=== PATIENT | male | born 1985 | race African-American/Black ===

== ENCOUNTER 2020-12-23 10:29 | Emergency (ER) | payer OTHER ==
[2020-12-23 10:59] LABS: Absolute Lymphocytes (CBC) 2.2 K/uL (0.7-4.9); Basophils % 1.2 % (0-1.3); Hematocrit 38.4 % (39.6-49.0); Lymphocytes % 42.8 % (15.3-44.8); MPV 8.1 fL (7.6-11.3); RBC Red Blood Cell Count 4.23 M/uL (4.33-5.43)
[2020-12-23 11:06] LABS: Protime INR 1.09
[2020-12-23] MEDS ORDERED: LIDOCAINE VISCOUS 2% SOLN 15 ML UDC ONE (11:11)
[2020-12-23] MEDS ORDERED: MAGNES/ALUMIN/SIMET 30ML UCUP ONE (11:11)
[2020-12-23 11:14] LABS: ALT/SGPT 65 U/L (12-78); AST/SGOT 24 U/L (15-37); Albumin 4.4 g/dL (3.4-5.0); Alkaline Phosphatase 49 U/L (45-117); BUN Blood Urea Nitrogen 12 mg/dL (7-18); Bicarbonate 24 mmol/L (21-32); Bilirubin Direct 0.1 mg/dL (0-0.2); Bilirubin Total 0.4 mg/dL (0.2-1.0); Glucose Level 138 mg/dL (74-106); Lipase 119 U/L (73-393); NT PRO-BNP 21 pg/mL (<125); Potassium 3.6 mmol/L (3.5-5.1); Protein, Total 8.3 g/dL (6.4-8.2); Sodium Level 139 mmol/L (136-145); Troponin (Emerg Dept Use Only) < 0.02 ng/mL (0.0-0.045)
--- NOTE | 2020-12-23 11:21 | RAD REPORT ---
EXAM DESCRIPTION: RAD - Chest Single View - 12/23/2020 11:14 am CLINICAL HISTORY: CHEST PAIN COMPARISON: CHEST SINGLE VIEW dated 06/15/2013; CHEST PA AND LAT 2 VIEW dated 09/07/2011 FINDINGS: Lines: None. Lungs: No evidence of edema or pneumonia. Pleural: No significant pleural effusions or pneumothorax. Cardiac: The heart size is within normal limits. Bones: No acute fractures. Other: IMPRESSION: No acute cardiopulmonary disease.
--- NOTE | 2020-12-23 11:23 | RAD REPORT ---
EXAM DESCRIPTION: US - Abdomen Exam Limited - 12/23/2020 11:18 am CLINICAL HISTORY: chest pain COMPARISON: No comparisons FINDINGS: The gallbladder demonstrates no gallstones. No pericholecystic fluid or gallbladder wall t hickening. The common bile duct is normal measuring 4 mm. The liver demonstrates no findings of intrahepatic biliary dilatation. IMPRESSION: Unremarkable examination.
--- NOTE | 2020-12-23 11:54 | ER ---
Nurse's Notes [facility] Name: Bam Becerril Age: 35 yrs Sex: Male : 1985 Arrival Date: 12/23/2020 Time: 10:31 Bed 19 Private MD: Diagnosis: Chest pain, unspecified;Gastro-esophageal reflux disease with esophagitis Presentation: 12/23 10:31 Chief complaint: Patient states: he has had chest pain for about a year. pain is ap3 primarily midsternal, and at times will radiate to the back. patient states he has seen his dr for this before and has been told its congestion and reflux. Coronavirus screen: At this time, the client does not indicate any symptoms associated with coronavirus-19. Ebola Screen: No symptoms or risks identified at this time. Initial Sepsis Screen: Does the patient meet any 2 criteria? No. Patient's initial sepsis screen is negative. Does the patient have a suspected source of infection? No. Patient's initial sepsis screen is negative. Risk Assessment: Do you want to hurt yourself or someone else? Patient reports no desire to harm self or others. Onset of symptoms was 2019. 10:31 Method Of Arrival: EMS: [facility] ap3 10:31 Acuity: TON 3 ap3 Triage Assessment: 10:34 General: Appears uncomfortable, Behavior is cooperative. Pain: Complains of pain in ap3 mid-sternal area Pain radiates to back Pain currently is 8 out of 10 on a pain scale. Quality of pain is described as tight Pain began a year ago. Neuro: Level of Consciousness is awake, alert, obeys commands, Oriented to person, place, time, situation, Appropriate for age Moves all extremities. Gait is steady, Speech is normal. Cardiovascular: Reports chest pain, Denies shortness of breath, Capillary refill < 3 seconds Patient's skin is warm and dry. Chest pain is described as Pain is 8 out of 10 on a pain scale. quality is tightness radiates to back at times began a year ago. Respiratory: Airway is patent Respiratory effort is even, unlabored, Respiratory pattern is regular, symmetrical. GI: Reports nausea. Historical: - Allergies: 10:36 Morphine; ap3 - Home Meds: 10:36 unknown white pill [Active]; ap3 - PMHx: 10:36 Asthma; Gastroesophageal reflux disease; ap3 - Immunization history:: Adult Immunizations up to date, Client reports receiving the 2nd dose of the Covid vaccine. - Social history:: Smoking status: Patient reports use of chewing tobacco. - Family history:: not pertinent. - Hospitalizations: : No recent hospitalization is reported. Screenin:34 Abuse screen: Denies threats or abuse. Nutritional screening: No deficits noted. ap3 Tuberculosis screening: No symptoms or risk factors identified. Fall Risk None identified. Vital Signs: 10:31 BP 148 / 75; Resp 18; Pulse Ox 97% on R/A; Weight 99.79 kg; Height 5 ft. 7 in. (170.18 ap3 cm); Pain 8/10; 10:38 BP 133 / 76; Pulse 63; ap3 11:15 Temp 98.9(O); ap3 11:29 BP 145 / 68; Pulse 68; Pulse Ox 100% on R/A; ap3 10:31 Body Mass Index 34.46 (99.79 kg, 170.18 cm) ap3 ED Course: 10:31 Patient arrived in ED. ap3 10:33 Dimitris Washington MD is Attending Physician. rn 10:34 Triage completed. ap3 10:36 Arm band placed on right wrist. EKG done per protocol. Performed by ED Staff. Shown to ap3 ED physician. 10:38 Patient has correct armband on for positive identification. Placed in gown. Bed in low ap3 position. Call light in reach. Side rails up X2. threat monitoring analyst on. Pulse ox on. NIBP on. Door closed. Noise minimized. 10:42 D-Dimer Sent. aj2 10:42 PT-INR Sent. aj2 10:42 Troponin (emerg Dept Use Only) Sent. aj2 10:43 Yolanda Hale, RN is Primary Nurse. ap3 11:10 Pt visited by . ap3 11:13 XRAY Chest (1 view) In Process Unspecified. EDMS 11:18 US Abdomen Limited In Process Unspecified. EDMS 11:53 Arun Kim MD is Referral Physician. rn 12:02 No provider procedures requiring assistance completed. IV discontinued, intact, ap3 bleeding controlled, No redness/swelling at site. Pressure dressing applied. Administered Medications: 10:47 Drug: GI Cocktail without - (Maalox Suspension 30 ml, Lidocaine Liquid 2 % 15 ap3 ml) Route: PO; 12:02 Follow up: Response: No adverse reaction ap3 11:58 Drug: ProTONIX (pantoprazole) 40 mg Route: IVP; Site: right forearm; ap3 12:02 Follow up: Response: No adverse reaction ap3 Outcome: 11:54 Discharge ordered by . rn 12:02 Discharged to home ambulatory. ap3 12:02 Condition: good 12:02 Discharge instructions given to patient, Instructed on discharge instructions, follow up and referral plans. Demonstrated understanding of instructions, follow-up care, medications, Prescriptions given X 1. 12:06 Patient left the ED. ap3 Signatures: Dispatcher [employer] EDMS Dimitris Washington MD MD rn Prokisch, Amanda, RN RN ap3 Babita Llanes2
--- NOTE | 2020-12-23 11:55 | EDPHYS ---
Physician Documentation [facility] Name: Bam Becerril Age: 35 yrs Sex: Male : 1985 Arrival Date: 12/23/2020 Time: 10:31 Bed 19 Private MD: ED Physician Dimitris Washington HPI: 12/23 11:48 This 35 yrs old Black Male presents to ER via EMS with complaints of Chest pain. rn 11:48 The patient or guardian reports chest pain that is located primarily in the substernal rn area. The pain radiates to Associated signs and symptoms: Pertinent negatives: abdominal pain, cough, diaphoresis, palpitations, shortness of breath, syncope, vomiting. The chest pain is described as a heaviness, squeezing. Duration: The patient or guardian reports multiple episodes, that are intermittent. Modifying factors: The symptoms are alleviated by nothing. the symptoms are aggravated by nothing. Severity of pain: At its worst the pain was moderate in the emergency department the pain has improved. The patient has experienced similar episodes in the past. The patient has not recently seen a physician. Patient reports intermittent chest pain for 1 year. Radiates to the back. Has a terrible diet. Today was eating oncologic and went to work shortly after felt substernal chest pain that radiates to the back. Seen by PCP and told was acid reflux but does not take any medication and has not modified diet. No family history of cardiac problems at her age. Denies trauma. Denies feeling ill or cough.. Historical: - Allergies: 10:36 Morphine; ap3 - Home Meds: 10:36 unknown white pill [Active]; ap3 - PMHx: 10:36 Asthma; Gastroesophageal reflux disease; ap3 - Immunization history:: Adult Immunizations up to date, Client reports receiving the 2nd dose of the Covid vaccine. - Social history:: Smoking status: Patient reports use of chewing tobacco. - Family history:: not pertinent. - Hospitalizations: : No recent hospitalization is reported. ROS: 11:48 Constitutional: Negative for fever, chills, and weight loss, Eyes: Negative for injury, rn pain, redness, and discharge, ENT: Negative for injury, pain, and discharge, Neck: Negative for injury, pain, and swelling, Cardiovascular: Positive for chest pain Respiratory: Negative for shortness of breath, cough, wheezing, and pleuritic chest pain, Abdomen/GI: Negative for abdominal pain, nausea, vomiting, diarrhea, and constipation, Back: Negative for injury and pain, : Negative for injury, bleeding, discharge, and swelling, MS/Extremity: Negative for injury and deformity, Skin: Negative for injury, rash, and discoloration, Neuro: Negative for headache, weakness, numbness, tingling, and seizure. Exam: 11:48 Constitutional: This is a well developed, well nourished patient who is awake, alert, rn and in no acute distress. Head/Face: Normocephalic, atraumatic. Eyes: Periorbital areas with no swelling, redness, or edema. Cardiovascular: Regular rate and rhythm. No pulse deficits. Respiratory: No increased work of breathing, no retractions or nasal flaring. Abdomen/GI: Soft, non-tender Skin: Warm, dry MS/ Extremity: Pulses equal, no cyanosis. Neuro: Awake and alert, GCS 15 11:48 ECG was reviewed by the Attending Physician. rn Vital Signs: 10:31 BP 148 / 75; Resp 18; Pulse Ox 97% on R/A; Weight 99.79 kg; Height 5 ft. 7 in. (170.18 ap3 cm); Pain 8/10; 10:38 BP 133 / 76; Pulse 63; ap3 11:15 Temp 98.9(O); ap3 11:29 BP 145 / 68; Pulse 68; Pulse Ox 100% on R/A; ap3 10:31 Body Mass Index 34.46 (99.79 kg, 170.18 cm) ap3 MDM: 10:33 Patient medically screened. rn 11:48 Differential diagnosis: acute myocardial infarction, acute pericarditis, anxiety, rn coronary artery disease chest wall pain, cholecystitis, Cholelithiasis costochondritis, esophagitis, gastritis, gastroesophageal reflux disease (GERD), pancreatitis, pleurisy, pneumothorax. HEART Score: History: Slightly Suspicious (0), ECG: Non specific repolarization disturbance / LBTB / PM (1), Age: < or = 45 years (0), Risk Factors: No Risk Factors Known (0), Troponin: < or = 1 x Normal Limit (0), Total Score = 1. Data reviewed: vital signs, nurses notes, lab test result(s), EKG, radiologic studies, plain films, and as a result, I will discharge patient. Data interpreted: groundwater monitoring technician: rate is 68 beats/min, rhythm is normal sinus rhythm, regular, with no ectopy, Interpretation: normal rate, normal rhythm, Pulse oximetry: on room air is 100 %. Interpretation: normal. Counseling: I had a detailed discussion with the patient and/or guardian regarding: the historical points, exam findings, and any diagnostic results supporting the discharge/admit diagnosis, lab results, radiology results, the need for outpatient follow up, to return to the emergency department if symptoms worsen or persist or if there are any questions or concerns that arise at home. Response to treatment: the patient's symptoms have markedly improved after treatment, and as a result, I will discharge patient. Special discussion: Based on the patient's history, exam, and Dx evaluation, there is no indication for emergent intervention or inpatient Tx. It is understood by the patient/guardian that if the Sx's persist or worsen they need to return immediately for re-evaluation. I discussed with the patient/guardian in detail that at this point there is no indication for admission to the hospital. It is understood, however, that if the symptoms persist or worsen the patient needs to return immediately for re-evaluation. ED course: Chest pain markedly improved after GI cocktail, after approximately 20 minutes of taking it. Will DC home with antacids and return precautions given troponin negative, ECG unremarkable without ischemia and symptoms for 1 year. Also counseled patient regarding diet changes. 12/23 10:40 Order name: Basic Metabolic Panel; Complete Time: 11: rn 12/23 10:40 Order name: CBC with Diff; Complete Time: : rn 12/23 10:40 Order name: LFT's; Complete Time: 11: rn 12/23 10:40 Order name: NT PRO-BNP; Complete Time: 11: rn 12/23 10:40 Order name: PT-INR; Complete Time: 11: rn 12/23 10:40 Order name: Troponin (emerg Dept Use Only); Complete Time: 11: rn 12/23 10:40 Order name: XRAY Chest (1 view); Complete Time: 11: rn 12/23 10:40 Order name: EKG; Complete Time: 10:41 rn 12/23 10:40 Order name: Cardiac monitoring; Complete Time: 10:43 rn 12/23 10:40 Order name: D-Dimer; Complete Time: 11:24 rn 12/23 10:40 Order name: Lipase; Complete Time: 11:24 rn 12/23 10:40 Order name: US Abdomen Limited; Complete Time: 11:24 rn 12/23 10:40 Order name: EKG - Nurse/Tech; Complete Time: 10:43 rn 12/23 10:40 Order name: IV Saline Lock; Complete Time: 10:42 rn 12/23 10:40 Order name: Labs collected and sent; Complete Time: :42 rn 12/23 10:40 Order name: O2 Per Protocol; Complete Time: :43 rn 12/23 10:40 Order name: O2 Sat Monitoring; Complete Time: :43 rn EC:48 Rate is 58 beats/min. Rhythm is regular. QRS [place] is Normal. GA interval is normal. QRS rn interval is normal. QT interval is normal. No Q waves. T waves are Inverted in lead III. No ST changes noted. Clinical impression: NSR w/ Non-specific ST/T Changes. Interpreted by me. Reviewed by me. Administered Medications: 10:47 Drug: GI Cocktail without - (Maalox Suspension 30 ml, Lidocaine Liquid 2 % 15 ap3 ml) Route: PO; 12:02 Follow up: Response: No adverse reaction ap3 11:58 Drug: ProTONIX (pantoprazole) 40 mg Route: IVP; Site: right forearm; ap3 12:02 Follow up: Response: No adverse reaction ap3 Disposition Summary: 12/23/20 11:54 Discharge Ordered Location: Home rn Problem: an ongoing problem rn Symptoms: have improved rn Condition: Stable rn Diagnosis - Chest pain, unspecified rn - Gastro-esophageal reflux disease with esophagitis rn Followup: rn - With: Arun Kim MD - When: As needed - Reason: Recheck today's complaints, Re-evaluation by your physician Discharge Instructions: - Discharge Summary Sheet rn - Nonspecific Chest Pain, Adult rn - Food Choices for Gastroesophageal Reflux Disease, Adult rn - Gastroesophageal Reflux Disease, Adult rn Forms: - Medication Reconciliation Form rn - Thank You Letter rn - Antibiotic international representative - Prescription Opioid Use rn - Work release form ap3 Prescriptions: - Protonix 40 mg Oral Tablet - take 1 tablet by ORAL route once daily; 30 tablet; Refills: 0, Product rn Selection Permitted Signatures: Dispatcher [employer] EDDimitris Gipson MD MD rn Prokisch, Amanda, RN RN ap3 Corrections: (The following items were deleted from the chart) 11:53 11:48 ED course: Chest pain markedly improved after GI cocktail, after approximately 20 rn minutes of taking it. Will DC home with antacids and return precautions given troponin negative, ECG unremarkable without ischemia and symptoms for 1 year.. rn
[2020-12-23 12:13] VITALS: TEMP 98.9
[2020-12-23 12:14] VITALS: BP 145/68; O2SAT 100
[2020-12-23] MEDS ORDERED: PANTOPRAZOLE 40 MG INJ ONE (12:16)
--- NOTE | 2020-12-24 16:47 | EKG ---
Test Date: 2020-12-23 Test Time: 10:35:29 Tree Shear Operator: TTR MEASUREMENT RESULTS: Intervals: Rate: 58 IN: 138 QRSD: 98 QT: 364 QTc: 357 Thayer: P: 65 IN: 138 QRS: 38 T: 3 INTERPRETIVE STATEMENTS: Sinus bradycardia Nonspecific T wave abnormality Abnormal ECG Compared to ECG 06/15/2013 06:26:51 No significant changes Electronically Signed On 12-24-20 16:43:08 CDT by Arun Kim
== END 2020-12-23 12:06 | disposition home or self-care (01) ==
LOC: ER 10:29
DX: K21.00 Gastro-esophageal reflux disease with esophagitis, without bleeding (principal); F17.220 Nicotine dependence, chewing tobacco, uncomplicated; Z88.5 Allergy status to narcotic agent
CPT/HCPCS: 93005; 85025; 80048; 36415; 85610; 85379; 80076; 84484; 83690; 83880; 71045; 76705; 96374; 99284; C9113

== ENCOUNTER 2021-01-19 13:01 | Inpatient (IN) | payer OTHER ==
[2021-01-19] MEDS ORDERED: Ringers Lactate 1,000 ML IV ONE (14:11)
[2021-01-19] MEDS ORDERED: NA CIT/CITRIC AC 30 ML ORAL UDC ONE (14:37)
[2021-01-19] MEDS ORDERED: dexAMETHasone 10 MG/ML VIAL ONE (14:50)
[2021-01-19] MEDS ORDERED: FENTANYL CITR 100 MCG/2 ML ONE ×2 (14:50→16:13)
[2021-01-19] MEDS ORDERED: MIDAZOLAM HCL 2 MG/2 ML INJ ONE (14:50)
[2021-01-19] MEDS ORDERED: propofoL 200 MG/20 ML VIAL IV ONE (14:50)
[2021-01-19] MEDS ORDERED: KETOROLAC 30 MG/ML INJ ONE (14:50)
[2021-01-19] MEDS ORDERED: LIDOCAINE 2% MPF 5 ML VIAL ONE (14:50)
[2021-01-19] MEDS ORDERED: ONDANSETRON 4 MG/2 ML VIAL ONE (14:50)
[2021-01-19] MEDS ORDERED: ROCURONIUM 50 MG/5 ML VIAL IV ONE (14:50)
[2021-01-19] MEDS ORDERED: CEFOXITIN/NS 1gm 1 GM/50 ML BAG ONE (14:51)
--- NOTE | 2021-01-19 15:42 | P.OP ---
Edger Hand: Jose BELL Preoperative diagnosis: Acute Appendicitis Postoperative diagnosis: Acute Suppurative Appendicitis with adhesions Primary procedure: Lap Appy, ROSALIE Anesthesia: General Estimated blood loss: min Specimen: Appy Findings: as above Complications: None Drain(s): BENY drain Transferred to: Recovery Room Condition: Good
[2021-01-19] MEDS ORDERED: GLYCOPYRROLATE 0.2 MG/ML SYR ONE ×2 (15:45→16:14)
[2021-01-19] MEDS ORDERED: HYDROMORPHONE HCL 1 MG/ML INJ IV PRN (15:48)
[2021-01-19] MEDS ORDERED: ONDANSETRON 4 MG/2 ML VIAL IV PRN (15:48)
[2021-01-19] MEDS ORDERED: VECURONIUM 10 MG/VIAL IV ONE (15:52)
[2021-01-19] MEDS ORDERED: NS 0.9% VIAL 10 ML ONE (15:52)
[2021-01-19] MEDS ORDERED: NEOSTIGMINE 1 MG/ML -5 ML ONE (16:14)
[2021-01-19] MEDS: METRONIDAZOLE 500mg IVPB 500 MG/100 ML BAG IV SCH (17:00)
[2021-01-19] MEDS ORDERED: SUCCINYLCHOLINE 20 MG/ML (10 ML) IV ONE (17:21)
[2021-01-19 17:24] VITALS: BMI 35.5
[2021-01-19] MEDS ORDERED: CEFOXITIN SODIUM 1 GM/VIAL IVPB SCH (18:00)
[2021-01-19] MEDS ORDERED: INFLUENZA VACCINE (for 6+ mo) 0.5 ML DOSE IMVAC ONE (18:00)
[2021-01-19] MEDS ORDERED: PNEUMOCOCCAL VACCINE 0.5 ML IMVAC ONE (18:00)
[2021-01-19] MEDS: CEFOXITIN 1 GM in NA CHLORIDE 0.9% 50 ML IVPB SCH (18:21)
--- NOTE | 2021-01-19 18:40 | PREOPHP ---
Date of Admission: 01/19/2021 Chief Complaint: Abdominal pain. History Of Present Illness: The patient is a 35-year-old gentleman, who has had intermittent right-s ided abdominal pain since Tuesday, he was better Tuesday and then yesterday he became little worse an d today he became more symptomatic and he came to help this. He had a workup done, which revealed ac ashutosh appendicitis. I was contacted by the patient to be transferred to our facility. He is awake and alert. States that he had 1 episode of nausea and vomiting prior to going to dialysis. He denies a ny diarrhea, constipation, blood in his stool. No dysuria or hematuria. No sore throat, runny nose, cough, headaches, or dizziness. Does have anorexia and no fever or chills. Review of Systems: Otherwise unremarkable. Past Medical History: Hypertension. Past Surgical History: Vasectomy. Allergies: NO ALLERGIES. Social History: Denies smoking or drinking. Family History: Noncontributory. Physical Examination: Vital Signs: Stable. He is currently afebrile. He is awake, alert, and oriented x3. Head and neck: Cranial nerves 2 through 12 are grossly within normal limits. No neck masses. No JV D. Throat clear. Neck is supple. Chest: Clear. Heart: S1 and S2. Abdomen: Soft, nondistended, positive Rovsing sign. Positive right lower quadrant tenderness with r ebound. No rigidity or guarding. Extremity: Adequately perfused. Nontender. Neuro: Nonfocal. Diagnostic Data: CT of the abdomen and pelvis and laboratory data reviewed. White count is normal. CT is consistent with acute appendicitis. Assessment: Acute appendicitis. Plan: Admit n.p.o., IV fluid, IV antibiotic, to the OR for laparoscopic appendectomy, possible open. The patient understands the risks, benefits, and alternatives and agrees to procedure. /MODL Voice ID: [id number]
[2021-01-19] MEDS: Ringers Lactate 1,000 ML IV SCH (21:00)
[2021-01-20] MEDS: PHENAZOPYRIDINE 100MG TAB PO PRN ×2 (00:30→08:11)
[2021-01-20] MEDS: HYDROCODONE/APAP 7.5/325 MG TAB PO PRN ×3 (00:30→15:00)
[2021-01-20] MEDS: METRONIDAZOLE 500mg IVPB 500 MG/100 ML BAG IV SCH ×3 (01:00→17:00)
--- NOTE | 2021-01-20 02:45 | OP ---
Date of Procedure: 01/19/2021 Surgeon: Horace Gallardo MD Research Program Assistant: Ajay Butcher, surgical endoscopist certified Preoperative Diagnosis: Acute appendicitis. Postoperative Diagnosis: Acute suppurative appendicitis with significant adhesions. Procedure Performed: Laparoscopic appendectomy and lysis of adhesions. Estimated Blood Loss: Minimal. Specimen: Appendix. Findings: As above. Anesthesia: General. Complications: None. Drains: BENY #10 flat. Disposition: The patient tolerated procedure in stable condition and taken to Recovery in good gener al condition. Operative Note: The patient was brought to the OR and placed in supine position. General anesthesia begun. The patient was prepped and draped in usual sterile fashion. Marcaine 0.5% was infiltrated locally. 15 blade was used to make a 1 cm supraumbilical midline incision, subcutaneous tissue divid ed, fascia identified and divided. #1 Vicryl stay suture was placed. Peritoneal cavity entered with sharp and blunt dissection. 12 mm trocar was placed into the peritoneal cavity under direct vision. Pneumoperitoneum was established and then two 5 mm trocars were placed; one in the suprapubic regio n and one in the left lower quadrant. Laparoscopy revealed an adhesive band in the right lower quadr ant with small bowel and colon attached to it and this was taken down with LigaSure to allow exposure of the cecum, which was done. Base of the appendix was clearly identified; however, the tip of the appendix was difficult to identify because of all the adhesions and suppuration that was present. Carroll bsequently, sharp and blunt dissection was utilized to free most of the appendix tissue from the surr ounding tissue. Base of the appendix was divided with the Endo-SARATH stapling device. The mesoappendi x was divided as well. Then, the appendix was retrieved and first half of the appendix was taken int o an EndoCatch bag. The remainder of the area, where the tip of the appendix was retrieved in pieces and sent to Pathology for identification. As there was a large amount of inflammation, there was ir rigation done and then the effluent was cleared. No evidence of bowel injury or bleeding was noted. Then a Jet-Shetty drain, 10 flat was placed in the right lower quadrant, pelvis region and secure d with 3-0 nylon. Then, all trocars were removed under direct vision. Stay sutures were tied to eac h other to approximate the fascial defect. Subcu wounds were irrigated. Bleeding controlled with ca utery. 3-0 chromic was used to approximate the subcutaneous tissue and staple was used to closed the skin. Sterile dressing applied. The patient was awakened and taken to Recovery in good general con dition. /MODL Voice ID: [id number] Report ID: [id number]
[2021-01-20] MEDS: CEFOXITIN 1 GM in NA CHLORIDE 0.9% 50 ML IVPB SCH ×5 (06:00→17:19)
[2021-01-20 06:02] LABS: Absolute Lymphocytes (CBC) 1.2 K/uL (0.7-4.9); Basophils % 0.4 % (0-1.3); Hematocrit 33.3 % (39.6-49.0); Lymphocytes % 8.7 % (15.3-44.8); MPV 7.6 fL (7.6-11.3); RBC Red Blood Cell Count 3.66 M/uL (4.33-5.43)
[2021-01-20 06:14] LABS: Magnesium 1.8 mg/dL (1.8-2.4); Phosphorus 3.7 mg/dL (2.5-4.9); Potassium 4.4 mmol/L (3.5-5.1)
[2021-01-20] MEDS: Ringers Lactate 1,000 ML IV SCH ×4 (08:00→16:00)
--- NOTE | 2021-01-20 15:06 | PN ---
Date of Progress Note: 01/20/2021 Subjective: The patient last night had difficulty urinating, was given Pyridium and he is urinating with a little bit discomfort but the pain is improved. He is tolerating diet, ambulating, pain is co ntrolled. His vitals are stable. He is afebrile. Jet Shetty drain has put out 70 cc. His white count is 13.7 with a left shift. Abdomen is benign. Assessment: Status post laparoscopic appendectomy, lots of adhesions. Recommendations: Continue IV antibiotics, ambulation and incentive spirometry and when his white cou nt is trending downward we will consider discharge in 24-48 hours. The patient is clinically doing w ell. /MODL Voice ID: [id number] Report ID: [id number]
[2021-01-20] MEDS ORDERED: BISACODYL E.C. 5 MG TAB PO PRN (22:35)
[2021-01-21] MEDS: METRONIDAZOLE 500mg IVPB 500 MG/100 ML BAG IV SCH ×3 (00:07→09:00)
[2021-01-21] MEDS: Ringers Lactate 1,000 ML IV SCH ×2 (00:12→08:00)
[2021-01-21] MEDS: CEFOXITIN 1 GM in NA CHLORIDE 0.9% 50 ML IVPB SCH ×2 (01:08→06:00)
[2021-01-21 07:35] LABS: Absolute Lymphocytes (CBC) 2.1 K/uL (0.7-4.9); Basophils % 0.5 % (0-1.3); Hematocrit 34.8 % (39.6-49.0); Lymphocytes % 24.9 % (15.3-44.8); MPV 7.4 fL (7.6-11.3); RBC Red Blood Cell Count 3.77 M/uL (4.33-5.43)
[2021-01-21 08:29] VITALS: O2SAT 96
[2021-01-21 08:33] VITALS: BP 146/80; TEMP 98.3
[2021-01-21] MEDS: HYDROCODONE/APAP 7.5/325 MG TAB PO PRN (08:41)
--- NOTE | 2021-01-21 22:36 | DS ---
Date of Discharge: 01/21/2021 Diagnosis: Acute appendicitis. Discharge Diagnosis: Acute appendicitis. Procedure Performed: Laparoscopic appendectomy and lysis of adhesions. Hospital Course: The patient is a 35-year-old gentleman, was admitted with acute appendicitis. Transferred from [place], underwent the aforementioned procedure. Postoperatively, he had some leukocytosis. IV antibiotics were continued he today is ambulating. Pain controlled on p.o. pain medication and afebrile. He is using bathroom well and pain controlled on p.o. pain medications. Therefore patient will be discharged to home. Disposition: Home. Condition: Stable. Discharge Instructions: Resume home medications and diet. Activity as tolerated. No heavy lifting. May shower. Keep dressing clean, dry, dry gauze to wound daily. Record BENY q.12. Bring record to office. Strip tubing p.r.n. and Cipro 500 mg p.o. q.12, Flagyl 500 mg p.o. q.8. /SANTOS Voice ID: [id number] Report ID: [id number] RON
== END 2021-01-21 10:00 | disposition home or self-care (01) | DRG 343 ==
LOC: PACU 13:01 → 2ND 15:39 → OBSVTOIN 01-20 17:39
PROVIDERS: ADMIT Surgery; ATTEND Surgery
PROC: 0DTJ4ZZ Resection of Appendix, Percutaneous Endoscopic Approach (ICD-10-PCS; principal; 2021-01-20)
PROC: 0W9G4ZZ Drainage of Peritoneal Cavity, Percutaneous Endoscopic Approach (ICD-10-PCS; 2021-01-20)
DX: K35.80 Unspecified acute appendicitis (principal); I10 Essential (primary) hypertension; K66.0 Peritoneal adhesions (postprocedural) (postinfection); D72.829 Elevated white blood cell count, unspecified; Z98.52 Vasectomy status
CPT/HCPCS: 36415; 80048; 83735; 84100; 85025; 88304; 94010; G0378; G0379; J0330; J0694; J1100; J1170; J2250; J2405; J2704; J2710; J3010; J7120

== ENCOUNTER 2021-01-24 16:22 | Emergency (ER) | payer OTHER ==
[2021-01-24 18:05] LABS: Absolute Lymphocytes (CBC) 1.8 K/uL (0.7-4.9); Basophils % 1.2 % (0-1.3); Hematocrit 33.5 % (39.6-49.0); Lymphocytes % 26.4 % (15.3-44.8); MPV 7.4 fL (7.6-11.3); RBC Red Blood Cell Count 3.66 M/uL (4.33-5.43)
[2021-01-24 18:26] LABS: ALT/SGPT 79 U/L (12-78); Albumin 3.7 g/dL (3.4-5.0); Alkaline Phosphatase 55 U/L (45-117); BUN Blood Urea Nitrogen 15 mg/dL (7-18); Bicarbonate 28 mmol/L (21-32); Bilirubin Direct < 0.1 mg/dL (0-0.2); Bilirubin Total 0.3 mg/dL (0.2-1.0); Glucose Level 95 mg/dL (74-106); Lipase 73 U/L (73-393); Protein, Total 7.6 g/dL (6.4-8.2); Sodium Level 141 mmol/L (136-145)
[2021-01-24 18:27] LABS: AST/SGOT 51 U/L (15-37); Potassium 4.7 mmol/L (3.5-5.1)
--- NOTE | 2021-01-24 18:33 | ER ---
Nurse's Notes [facility] Name: Bam Becerril Age: 35 yrs Sex: Male : 1985 Arrival Date: 01/24/2021 Time: 16:24 Bed 18 Private MD: Diagnosis: Localized edema-both LEGS Presentation: 01/24 16:39 Chief complaint: Patient states: On Tuesday01/19/21 had appendectomy done by Dr Gallardo. vg1 Pt states JAN leg swelling for about two days. Stated tried to elevate legs but swelling has not gone down. Coronavirus screen: Vaccine status: Patient reports receiving the 2nd dose of the covid vaccine. Ebola Screen: Patient negative for fever greater than or equal to 101.5 degrees Fahrenheit, and additional compatible Ebola Virus Disease symptoms. Initial Sepsis Screen: Does the patient meet any 2 criteria? No. Patient's initial sepsis screen is negative. Does the patient have a suspected source of infection? No. Patient's initial sepsis screen is negative. Risk Assessment: Do you want to hurt yourself or someone else? Patient reports no desire to harm self or others. Onset of symptoms was January 22, 2021. 16:39 Method Of Arrival: Ambulatory vg1 16:39 Acuity: TON 3 vg1 Triage Assessment: 16:46 General: Appears in no apparent distress. uncomfortable, Behavior is calm, cooperative. vg1 Pain: Complains of pain in right leg and left leg. Historical: - Allergies: 16:46 Morphine; vg1 - Home Meds: 16:46 amlodipine oral [Active]; pantoprazole oral [Active]; olmesartan oral [Active]; vg1 - PMHx: 16:46 Asthma; Gastroesophageal reflux disease; Hypertensive disorder; vg1 - PSHx: 16:46 Appendectomy; vg1 - Immunization history:: Adult Immunizations up to date, Client reports receiving the 2nd dose of the Covid vaccine. - Social history:: Smoking status: Patient denies any tobacco usage or history of. Patient/guardian denies using alcohol, street drugs, The patient lives with family. - Family history:: not pertinent. Screenin:30 Abuse screen: Denies threats or abuse. Nutritional screening: No deficits noted. sl2 Tuberculosis screening: No symptoms or risk factors identified. Fall Risk None identified. No fall in past 12 months (0 pts). No secondary diagnosis (0 pts). IV access (20 points). Ambulatory Aid- None/Bed Rest/Nurse Assist (0 pts). Gait- Normal/Bed Rest/Wheelchair (0 pts) Mental Status- Oriented to own ability (0 pts). Total Wolfe Fall Scale indicates No Risk (0-24 pts). Assessment: 17:43 General: Appears uncomfortable, well groomed, well developed, Behavior is calm, sl2 cooperative, appropriate for age, Reports Post op appendectomy with bilateral lower leg edema. Pain: Denies pain. Neuro: No deficits noted. Level of Consciousness is awake, alert, obeys commands, Oriented to person, place, time, situation. Cardiovascular: No deficits noted. Rhythm is sinus rhythm. Respiratory: No deficits noted. Airway is patent Trachea midline Respiratory effort is even, unlabored, Respiratory pattern is regular, symmetrical, Breath sounds are clear bilaterally. GI: No deficits noted. No signs and/or symptoms were reported involving the gastrointestinal system. GI: Abdomen is round distended, Bowel sounds present X 4 quads. Abd is soft and non tender Reports flatulence, gaseousness, Post op appendectomy. : No deficits noted. EENT: No deficits noted. Derm: No deficits noted. No signs and/or symptoms reported regarding the dermatologic system. Musculoskeletal: Capillary refill < 3 seconds, 3+ pitting edema to bilateral lower extremity Reports Denies weakness in left leg and right leg. 18:12 Reassessment: Ultrasound of bilateral lower extremities in progress at bedside. 2 Vital Signs: 16:39 BP 146 / 93; Pulse 60; Resp 16; Temp 98.8; Pulse Ox 97% on R/A; Weight 97.52 kg; Height vg1 5 ft. 6 in. (167.64 cm); Pain 3/10; 17:30 BP 142 / 88; Pulse 64; Resp 18; Temp 98.6(O); Pulse Ox 98% on R/A; sl2 18:29 BP 130 / 90; Pulse 53; Resp 16; Temp 98.9(O); Pulse Ox 100% on R/A; 5 16:39 Body Mass Index 34.70 (97.52 kg, 167.64 cm) 1 ED Course: 16:24 Patient arrived in ED. mr 16:46 Triage completed. vg1 16:46 Arm band placed on. vg1 17:29 Zane Scott MD is Attending Physician. ma2 17:30 Patient has correct armband on for positive identification. Placed in gown. Bed in low sl2 position. Call light in reach. Side rails up X2. 17:34 Maggie Hawley, RN is Primary Nurse. sl2 17:58 Warm blanket given. Pulse ox on. NIBP on. [facility] 17:58 Basic Metabolic Panel Sent. [facility] 17:58 CBC with Diff Sent. 5 17:58 Hepatic Function Sent. [facility] 17:58 Lipase Sent. [facility] 17:58 Initial lab(s) drawn, by mt, sent to lab. Inserted saline lock: 20 gauge in right [facility] antecubital area, using aseptic technique. Blood collected. 18:27 Extremity Venous W Compression Jan In Process Unspecified. EDMS 19:22 Primary Nurse role handed off by Maggie Hawley, RN tt3 19:25 No provider procedures requiring assistance completed. dc2 19:26 IV discontinued, intact, bleeding controlled, No redness/swelling at site. Pressure dc2 dressing applied. Administered Medications: No medications were administered Outcome: 18:32 Discharge ordered by . ma2 19:25 Discharged to home via wheelchair. dc2 19:25 Condition: stable 19:25 Discharge instructions given to patient, Instructed on discharge instructions, follow up and referral plans. Demonstrated understanding of instructions, follow-up care. 19:27 Patient left the ED. dc2 Signatures: Dispatcher [employer] [facility] Elias Linda Chand Desire 5 Zane Scott MD MD ma2 Etelvina Mendosa RN RN 1 Rip Tang 3 Neelam Lindquist RN RN dc2 Maggie Hawley, VINICIUS RN sl2 Corrections: (The following items were deleted from the chart) 18:32 18:29 BP 130 / 90; Pulse 66bpm; Resp 16bpm; Pulse Ox 99% RA; Temp 98.0F Oral; [place] [id number]
--- NOTE | 2021-01-24 18:33 | EDPHYS ---
Physician Documentation [facility] Name: Bam Becerril Age: 35 yrs Sex: Male : 1985 Arrival Date: 01/24/2021 Time: 16:24 Bed 18 Private MD: ED Physician Zane Scott HPI: 01/24 17:42 This 35 yrs old Black Male presents to ER via Ambulatory with complaints of Post ma2 surgical swelling. 17:42 Day 6 s/p laparoscopic appendectomy done here in our hospital, here with generalized ma2 lower extremity edema mild constant for 5 days. He is passing gases bowel movement, urine output today.. Onset: The symptoms/episode began/occurred gradually, 3 day(s) ago. Severity of symptoms: At their worst the symptoms were mild in the emergency department the symptoms have improved. The patient has not experienced similar symptoms in the past. Historical: - Allergies: 16:46 Morphine; vg1 - Home Meds: 16:46 amlodipine oral [Active]; pantoprazole oral [Active]; olmesartan oral [Active]; vg1 - PMHx: 16:46 Asthma; Gastroesophageal reflux disease; Hypertensive disorder; vg1 - PSHx: 16:46 Appendectomy; vg1 - Immunization history:: Adult Immunizations up to date, Client reports receiving the 2nd dose of the Covid vaccine. - Social history:: Smoking status: Patient denies any tobacco usage or history of. Patient/guardian denies using alcohol, street drugs, The patient lives with family. - Family history:: not pertinent. ROS: 17:42 Constitutional: Negative for fever, chills, and weight loss, Eyes: Negative for injury, ma2 pain, redness, and discharge, ENT: Negative for injury, pain, and discharge, Neck: Negative for injury, pain, and swelling, Cardiovascular: Negative for chest pain, palpitations, and edema, Respiratory: Negative for shortness of breath, cough, wheezing, and pleuritic chest pain, Abdomen/GI: Negative for abdominal pain, nausea, diarrhea, and constipation, Back: Negative for injury and pain, : Negative for injury, bleeding, discharge, and swelling, Skin: Negative for injury, rash, and discoloration, Neuro: Negative for headache, weakness, numbness, tingling, and seizure, Psych: Negative for depression, anxiety, suicide ideation, homicidal ideation, and hallucinations. 17:42 All other systems are negative. Exam: 17:42 Constitutional: This is a well developed, well nourished patient who is awake, alert, ma2 and in no acute distress. Head/Face: Normocephalic, atraumatic. Eyes: Pupils equal round and reactive to light, extra-ocular motions intact. Lids and lashes normal. Conjunctiva and sclera are non-icteric and not injected. Cornea within normal limits. Periorbital areas with no swelling, redness, or edema. ENT: Nares patent. No nasal discharge, no septal abnormalities noted. Tympanic membranes are normal and external auditory canals are clear. Oropharynx with no redness, swelling, or masses, exudates, or evidence of obstruction, uvula midline. Mucous membranes moist. Neck: Trachea midline, no thyromegaly or masses palpated, and no cervical lymphadenopathy. Supple, full range of motion without nuchal rigidity, or vertebral point tenderness. No Meningismus. Chest/axilla: Normal chest wall appearance and motion. Nontender with no deformity. No lesions are appreciated. Cardiovascular: Regular rate and rhythm with a normal S1 and S2. No gallops, murmurs, or rubs. Normal PMI, no JVD. No pulse deficits. Respiratory: Lungs have equal breath sounds bilaterally, clear to auscultation and percussion. No rales, rhonchi or wheezes noted. No increased work of breathing, no retractions or nasal flaring. Abdomen/GI: Abdomen is mildly distended, nontender. There is surgical scar in good order. Otherwise soft, non-tender, with normal bowel sounds. No distension or tympany. No guarding or rebound. No evidence of tenderness throughout. Back: No spinal tenderness. No costovertebral tenderness. Full range of motion. Skin: Warm, dry with normal turgor. Normal color with no rashes, no lesions, and no evidence of cellulitis. MS/ Extremity: Mild lower extremity edema, 1+, equal both side, pitting. Pulses intact at PD, DP, PT. Bilaterally. Cap refill less than 1 second, brisk bilaterally, otherwise pulses equal, no cyanosis. Neurovascular intact. Full, normal range of motion. No sign of DVT on exam. Neuro: Awake and alert, GCS 15, oriented to person, place, time, and situation. Cranial nerves II-XII grossly intact. Motor strength 5/5 in all extremities. Sensory grossly intact. Cerebellar exam normal. Normal gait. Vital Signs: 16:39 BP 146 / 93; Pulse 60; Resp 16; Temp 98.8; Pulse Ox 97% on R/A; Weight 97.52 kg; Height vg1 5 ft. 6 in. (167.64 cm); Pain 3/10; 17:30 BP 142 / 88; Pulse 64; Resp 18; Temp 98.6(O); Pulse Ox 98% on R/A; sl2 18:29 BP 130 / 90; Pulse 53; Resp 16; Temp 98.9(O); Pulse Ox 100% on R/A; mh5 16:39 Body Mass Index 34.70 (97.52 kg, 167.64 cm) vg1 MDM: 17:29 Patient medically screened. ma2 17:42 Differential Diagnosis Mild edema 1+ pitting equal both sides. Likely due to the ma2 surgery, and increased abdominal gases compression on IVC. Pain and swelling. Unlikely DVT, unlikely acute renal failure, or CHF or liver cirrhosis.. Data reviewed: vital signs, nurses notes. Counseling: I had a detailed discussion with the patient and/or guardian regarding: the historical points, exam findings, and any diagnostic results supporting the discharge/admit diagnosis, the presence of at least one elevated blood pressure reading (>120/80) during this emergency department visit, the need for outpatient follow up, Counseled about compression socks documentation. Return everything he wants. He will see a surgeon on Tuesday.. 18:29 Response to treatment: There is no appreciated change of the patient's symptoms at this nm2 time. 01/24 17:28 Order name: Basic Metabolic Panel; Complete Time: 18:29 ma2 01/24 17:28 Order name: CBC with Diff; Complete Time: 18:15 ma2 01/24 17:28 Order name: US Extremity Venous W Compression Tom; Complete Time: 18:38 ma2 01/24 17:28 Order name: Hepatic Function; Complete Time: 18:29 ma2 01/24 17:28 Order name: Lipase; Complete Time: 18:29 ma2 01/24 18:42 Order name: Urine Dipstick-Ancillary EDMS 01/24 17:28 Order name: IV Saline Lock; Complete Time: 17:57 ma2 01/24 17:28 Order name: Labs collected and sent; Complete Time: 17:58 ma2 01/24 17:28 Order name: Urine Dipstick-Ancillary (obtain specimen); Complete Time: 18:49 ma2 Administered Medications: No medications were administered Disposition Summary: 01/24/21 18:32 Discharge Ordered Location: Home ma2 Condition: Stable ma2 Diagnosis - Localized edema - both LEGS ma2 Followup: ma2 - With: Private Physician - When: Tomorrow - Reason: Continuance of care Discharge Instructions: - Discharge Summary Sheet ma2 - Edema, [id number] ma2 Forms: - Medication Reconciliation Form ma2 - Thank You Letter ma2 - Antibiotic Education ma2 - Prescription Opioid Use ma2 Signatures: Dispatcher [employer] Zane Lemus MD MD ma2 Etelvina Mendosa RN RN vg1
--- NOTE | 2021-01-24 18:34 | RAD REPORT ---
EXAM DESCRIPTION: US - Extrem Venous W Compress Tom - 01/24/2021 6:27 pm CLINICAL HISTORY: Swelling COMPARISON: None. TECHNIQUE: Real-time sonographic evaluation of the bilateral lower extremity deep venous systems was performed. FINDINGS: Normal compressibility, flow augmentation, phasic flow and spontaneous flow is identified in both the left and right lower extremity deep venous systems. No intraluminal filling defects seen. IMPRESSION: No DVT in either lower extremity.
[2021-01-24 18:43] LABS: Urine Blood Negative (Negative); Urine Glucose Negative (Negative); Urine Protein Negative (Negative); Urine Specific Gravity 1.025 (1.005-1.030); Urine pH 6.5 (5.0-7.0)
[2021-01-24 19:44] VITALS: BP 130/90; TEMP 98.9; O2SAT 100
== END 2021-01-24 19:27 | disposition home or self-care (01) ==
LOC: ER 16:22
DX: R60.0 Localized edema (principal); I10 Essential (primary) hypertension; Z88.5 Allergy status to narcotic agent
CPT/HCPCS: 36415; 80048; 80076; 81003; 83690; 85025; 93970; 99284